=== PATIENT | female | born 1990 | race Caucasian/White ===

== ENCOUNTER 2024-11-05 21:53 | Emergency (ER) | payer OTHER ==
[~2024-11-05] VITALS: Ht 170.2 cm; Wt 61.2 kg
[2024-11-05] MEDS ORDERED: MORPHINE SULFATE 2 MG/1 ML DISP.SYRIN ONE (22:09)
[2024-11-05] MEDS ORDERED: ONDANSETRON 4 MG/2 ML VIAL ONE (22:09)
[2024-11-05] MEDS: ONDANSETRON HCL 4 MG TABLET PO ONE (22:16)
[2024-11-05] MEDS: MORPHINE SULFATE 2 MG/1 ML DISP.SYRIN IM ONE (22:17)
[2024-11-05 22:27] LABS: *BILIRUBIN,URIN NEGATIVE (NEGATIVE); *BLOOD, URINE NEGATIVE (NEGATIVE); *CLARITY,URINE SLIGHTLY CLOUDY (CLEAR); *COLOR,URINE YELLOW (YELLOW); *KETONES,URINE 1+ (NEGATIVE); *PROTEIN,URINE NEGATIVE (NEGATIVE); *UROBILINOGEN,URINE 0.2 E.U./dl (NORMAL); LEUKOCYTE ESTERASE ,URINE NEGATIVE (NEGATIVE); NITRITE, URINE NEGATIVE (NEGATIVE); UGLUCOSE NEGATIVE (NEGATIVE)
[2024-11-05 22:29] LABS: *URINE HCG, QUAL NEGATIVE (NEGATIVE)
[2024-11-05 22:34] LABS: SQUAMOUS EPITHELIAL CELL,UR MODERATE /HPF (NONE SEEN); URINE AMORPHOUS URATE MODERATE /HPF
[2024-11-05 22:36] LABS: *AMPHETAMINE, URINE NEGATIVE (NEGATIVE); *BARBITURATE, URINE NEGATIVE (NEGATIVE); *BENZODIAZEPINE, URINE NEGATIVE (NEGATIVE); *CANNABINOID, URINE NEGATIVE (NEGATIVE); *COCCAINE, URINE NEGATIVE (NEGATIVE); *OPIATE, URINE NEGATIVE (NEGATIVE); *PHENCYCLIDINE SCREEN,URINE NEGATIVE (NEGATIVE); FENTANYL, URINE NEGATIVE (NEGATIVE)
[2024-11-05] MEDS ORDERED: NAPR-1009 PO (23:20)
[2024-11-05] MEDS ORDERED: KETOROLAC TROMETHAMINE 30 MG INJ ONE (23:39)
[2024-11-05] MEDS: KETOROLAC TROMETHAMINE 30 MG INJ IM ONE (23:44)
[2024-11-05 23:51] VITALS: BP 116/75; TEMP 98; O2SAT 99
== END 2024-11-05 23:52 | disposition home or self-care (01) ==
LOC: ER 22:14
DX: S22.32XA Fracture of one rib, left side, initial encounter for closed fracture (principal); S40.212A Abrasion of left shoulder, initial encounter; S60.812A Abrasion of left wrist, initial encounter; S50.811A Abrasion of right forearm, initial encounter; V86.56XA Driver of dirt bike or motor/cross bike injured in nontraffic accident, initial encounter; Y93.55 Activity, bike riding; Y92.89 Other specified places as the place of occurrence of the external cause; Y99.8 Other external cause status
CPT/HCPCS: 99284; 96374; 96375; 84703; 71101; 73030; 73090; 80307; 81001; J1885; J2405; J2270; A4606; A4663